=== PATIENT | male | born 1980 | race Caucasian/White ===

== ENCOUNTER 2018-01-22 16:23 | Emergency (ER) | payer MEDICAID | END 2018-01-22 18:01 | disposition home or self-care (01) | LOC: FTE 16:23 | DX: H61.22 Impacted cerumen, left ear (principal) | CPT/HCPCS: 69209; 99282-25 ==

== ENCOUNTER 2018-08-17 16:03 | Emergency (ER) | payer SELFPAY, OTHER, MEDICAID ==
[2018-08-17] MEDS: KETOROLAC 30 MG INJ IM (16:39)
== END 2018-08-17 17:13 | disposition home or self-care (01) ==
LOC: FTE 17:13
DX: S39.012A Strain of muscle, fascia and tendon of lower back, initial encounter (principal); V79.59XA Passenger on bus injured in collision with other motor vehicles in traffic accident, initial encounter
CPT/HCPCS: 96372; 99284-25